=== PATIENT | male | born 1960 | race African-American/Black ===

== ENCOUNTER 2017-08-03 10:16 | Emergency (ER) | payer MEDICAID ==
[~2017-08-03] VITALS: Ht 182.9 cm; Wt 86.0 kg
[2017-08-03] MEDS ORDERED: TETANUS, DIPHTHERIA, PERTUSSIS VAC/PF 0.5ML (>7YR OLD) IM ONE (10:45)
[2017-08-03] MEDS ORDERED: IBUPROFEN 600MG TABLET PO ONE (11:00)
[2017-08-03] MEDS ORDERED: AMOXICILLIN/POTASSIUM CLAVULANATE 875/125MG TAB PO ONE (11:00)
[2017-08-03 11:49] VITALS: BP 129/88
== END 2017-08-03 12:15 | disposition home or self-care (01) ==
LOC: ER 10:30
DX: S31.159A Open bite of abdominal wall, unspecified quadrant without penetration into peritoneal cavity, initial encounter (principal); F15.10 Other stimulant abuse, uncomplicated; Y04.1XXA Assault by human bite, initial encounter; Y93.89 Activity, other specified; Y92.89 Other specified places as the place of occurrence of the external cause; Y99.8 Other external cause status
CPT/HCPCS: 90471; 90715; 99283

== ENCOUNTER 2020-07-28 00:33 | Emergency (ER) | payer MEDICAID ==
[~2020-07-28] VITALS: Ht 193 cm; Wt 91.0 kg
[2020-07-28 00:35] VITALS: BP 136/82
[2020-07-28] MEDS ORDERED: HYDROCODONE/ACETAMINOPHEN 5/325MG TABLET PO ONE (02:15)
== END 2020-07-28 04:00 | disposition home or self-care (01) ==
LOC: ER 00:33
DX: S50.01XA Contusion of right elbow, initial encounter (principal); F15.10 Other stimulant abuse, uncomplicated; Z98.890 Other specified postprocedural states; W18.30XA Fall on same level, unspecified, initial encounter; Y93.89 Activity, other specified; Y92.89 Other specified places as the place of occurrence of the external cause; Y99.8 Other external cause status
CPT/HCPCS: 73080; 99283

== ENCOUNTER 2020-08-10 14:09 | Emergency (ER) | payer MEDICAID ==
[~2020-08-10] VITALS: Ht 182.9 cm; Wt 87.0 kg
[2020-08-10 14:12] VITALS: BP 116/78
== END 2020-08-10 16:51 | disposition left against medical advice (07) ==
LOC: ER 14:09
DX: Z53.21 Procedure and treatment not carried out due to patient leaving prior to being seen by health care provider (principal)